=== PATIENT | male | born 1995 | race African-American/Black ===

== ENCOUNTER 2020-02-05 08:28 | Observation (INO) | payer OTHER, SELFPAY ==
--- NOTE | ~2020-02-05 | XR_ITS ---
EXAMINATION: XR finger 3rd RT min 2V EXAM DATE: 02/05/2020 09:32 INDICATION: Infection. Right 3rd finger pain, swelling. TECHNIQUE: Right 3rd finger frontal, lateral and oblique projections obtained and reviewed. There is no prior study for comparison. FINDINGS: There are no acute right 3rd finger fractures or dislocations identified. There is no subc utaneous gas. There is soft tissue swelling over the digit, proximal interphalangeal. There are no radiopaque foreign bodies. There are no bony erosions identified. IMPRESSION: 1. Right 3rd finger exam without acute osseous findings. 2. Soft tissue swelling. Reviewed, dictated and finalized at location B.
[2020-02-05 08:55] VITALS: BP 120/76; PULSE 89; RESP 17; TEMP 36.8; O2SAT 99
[2020-02-05] MEDS: IBUPROFEN IV 800 MG/200 ML 800 MG/200 ML BAG 400 MG IVPB (09:41)
[2020-02-05 09:50] LABS: Basophils Absolute Auto 0.1 K/mm3 (0.0-0.1); Basophils Percent Auto 0.8 % (0.2-1.2); Eosinophils Absolute Auto 0.1 K/mm3 (0-0.3); Eosinophils Percent Auto 1.7 % (0-4.4); Hematocrit 40.3 % (42.0-52.0); Hemoglobin 13.6 g/dL (14.0-18.0); Immature Granulocyte Absolute 0.02 K/mm3 (0.00-0.031); Immature Granulocyte Percent A 0.3 % (0-0.5); Lymphocytes Absolute Auto 2.05 K/mm3 (0.9-3.2); Mean Corpuscular HGB Conc 33.7 g/dl (32-36); Mean Corpuscular Hemoglobin 29.8 pg (26-34); Mean Corpuscular Volume 88.4 fl (80-100); Mean Platelet Volume 10.6 fl (7.4-10.4); Monocytes Absolute Auto 0.7 K/mm3 (0.1-0.6); Monocytes Percent Auto 9.4 % (2.6-8.5); Neutrophils Absolute Auto 4.6 K/mm3 (1.3-6.7); Neutrophils Percent Auto 60.8 % (45.5-73.1); Platelet Count Result 223 k/mm3 (150-375); Red Blood Count 4.56 M/mm3 (4.6-6.20); Red Cell Distribution Width 13.7 % (11.5-14.5); White Blood Count 7.6 K/mm3 (4.5-10.0)
[2020-02-05 10:06] LABS: Anion Gap 5 mmol/L (8-16); Blood Urea Nitrogen 10 mg/dL (9-20); Calcium 8.8 mg/dL (8.4-10.2); Carbon Dioxide 27 mmol/L (22-30); Chloride 107 mmol/L (98-107); Estimated CRCL calculation 110 ml/min; Estimated Glomerular Filt Rate > 60; Glucose 87 mg/dL (75-110); Sodium 139 mmol/L (137-145)
--- NOTE | 2020-02-05 10:13 | PC.NURSE ---
RANDALL CRUZ AT BEDSIDE FOR I&D OF FINGER
[2020-02-05 10:42] VITALS: BP 133/68; PULSE 72; RESP 18; O2SAT 100
--- NOTE | 2020-02-05 10:47 | WC.ED.TRAUMA ---
HPI - Trauma General Chief Complaint: Extremity Injury, Upper <Rene Garcia PA-C - Last Filed: 02/05/20 11:16> Stated Complaint: HAND INFECTION <NITZA Alexander Last Filed: 02/05/20 11:16> Time Seen by Provider: 02/05/20 09:04 <Rene Garcia PA-C - Last Filed: 02/05/20 11:16> Source: patient <NITZA Alexander Last Filed: 02/05/20 11:16> Mode of arrival: ambulatory <NITZA Alexander Last Filed: 02/05/20 11:16> Limitations: no limitations <NITZA Alexander Last Filed: 02/05/20 11:16> History of Present Illness HPI narrative: Patient is a 25-year-old male who presents with 3 days duration of right middle finger swelling patient notes aching pain to the right middle digit worse with activity and movement patient denies injury or trauma notes he has had a similar infection in opposite finger in the recent past patient denies fever chills nausea vomiting otherwise is resting comfortably in the room upon arrival in no distress <Rene Garcia PA-C - Last Filed: 02/05/20 11:16> Related Data Allergies/Adverse Reactions: Allergies Allergy/AdvReac Type Severity Reaction Status Date / Time No Known Allergies Allergy Verified 02/05/20 09:00 <Rene Garcia PA-C - Last Filed: 02/05/20 11:16> Review of Systems Review of Systems: All systems reviewed & are unremarkable except as noted in HPI and below <Rene Garcia PA-C - Last Filed: 02/05/20 11:16> PMFSH Social History Social History: Social History (Updated 02/05/20 @ 10:48 by Rene Garcia PA-C) Smoking status: Current every day smoker Gender identity (if verbalized by the patient): Male <NITZA Alexander Last Filed: 02/05/20 11:16> Exam Narrative: Exam Narrative: GENERAL: Well-appearing, well-nourished, and in no acute distress. HEAD: Normocephalic, atraumatic. EYES: PERRLA and EOMI. ENT: Nares clear, no rhinorrhea or epistaxis. Mucous membranes moist. CHEST: Clear to auscultation. No respiratory distress. No wheezes rales or rhonchi HEART: Regular rate and rhythm. No murmur heard. Normal peripheral pulses. EXTREMITIES: Normal range of motion. No edema. SKIN: Warm, dry, no rash. Swelling and tenderness along the right third digit with erythema with the majority of tenderness around the PIP joint worse on the palmar aspect. No lymphangitic streaking NEURO: No focal deficits. Alert and oriented x3. Neurovascularly intact PSYCH: Normal mood and affect. <Rene Garcia PA-C - Last Filed: 02/05/20 11:16> Course Course Emergency Course: Patient in the room in no distress aware of case findings treatment plan diagnosis agreeing to stay in hospital given IV antibiotics had I&D no purulence will have plastic surgery consult <Rene Garcia PA-C - Last Filed: 02/05/20 11:16> CALL CIRCUIT WORKER/PA Physician Supervision Patient presented for finger pain and edema despite being on antibiotics. Exam of fingers notable for edema, wound on left third middle digit, edema which is circumferential with difficulty with flexion to right third middle digit. Patient is right-hand dominant. Otherwise neurovascularly intact. Will admit patient for what is likely I&D, cellulitis and patient was given antibiotics in the ER. For this patient encounter, I reviewed the CALL CIRCUIT WORKER or PA documentation, treatment plan, and medical decision making; and I had [id number] time with this patient. <Adrienne Starkey MD - Last Filed: 02/05/20 12:00> Consultations Consultation #1: Suresh case with hospitalist and plastic surgeon who will manage the patient in hospital antibiotic treatment initially followed by reevaluation <Rene Garcia PA-C - Last Filed: 02/05/20 11:16> Date: 02/05/20 <Rene Garcia PA-C - Last Filed: 02/05/20 11:16> Time: 10:49 <NITZA Alexander Last Filed: 02/05/20 11:16> Vital Signs Vital signs: Vital Signs Temperature 36
[2020-02-05 12:09] VITALS: BP 133/68; PULSE 72; RESP 18; O2SAT 100
[2020-02-05 12:15] VITALS: BP 104/58; PULSE 55; RESP 16; TEMP 36.3; O2SAT 99
[2020-02-05 12:24] VITALS: BMI 24.1
--- NOTE | 2020-02-05 12:24 | ADMGEN ---
This patient, Gucci Erwin, was admitted to 3 [facility] Room 310-01 @ 1215. Patient/family oriented to hospital policies and general routines including ID bracelet, bed and alarms, visiting hours, pain management, procedures, bathroom and other care routines, personal items, smoking policy, room service/diet, and visiting hours. Valuables list has been completed. Information on how to activate the Rapid Response Team has been discussed. Patient/Family are encouraged to report perceived risks to care and to ask questions if they do not understand what they are told or what they should do.
[2020-02-05] MEDS: LACTATED RINGERS 1,000 ML 125 ML IV CONT (12:41)
--- NOTE | 2020-02-05 13:05 | PM.IMHP ---
H&P: HPI History of Present Illness Date/Time: 02/05/20 13:05 Chief complaint: Cellulitis finger Narrative: Gucci Erwin is a 25 year old male who comes in today for evaluation of his right middle finger. He states that couple of days ago he began to have some erythema. Some edema. As such she came to the emergency room for evaluation. In the emergency room he was evaluated. I and D was attempted with no purulence identified. The patient states he has had no specific injuries or trauma at this site. No clear etiology of why would have this edema. Of note about 4-5 weeks: His left middle finger had a similar event. This started out as erythema and they provided topical treatment for burn and subsequent antibiotics. He said he had significant edema of the left middle finger perhaps 2 times the size of the right middle finger is currently. Nothing was working and dilated the antibiotics at which time it began to shrink up and the distal tip open did had purulence drainage. He had attempted to drain the left middle finger before that drainage without success. This is now healing and he is doing well on the hand. He does have numbness of the left middle finger tip. On his right hand he states he does not have numbness, he is able to feel the tip. He states he wonders if this has relation to incarceration however he has been out for almost 1 year. Review of Systems Review of Systems: All systems reviewed & are unremarkable except as noted in HPI and below Musculoskeletal: Musculoskeletal: Reports as per HPI [facility] Family History Family History (Updated 02/05/20 @ 12:28 by Eboni Martins RN) Other Unknown family medical history Social History Social History (Updated 02/05/20 @ 10:48 by Rene Garcia PA-C) Smoking packs per day: 1 Smoking cigarettes per day: 20.0 Years smoked: 1 Smoking pack-years: 1.00 Smoking status: Current every day smoker Tobacco type: cigarettes Additional smoking assessment comments: black and milds, marijuana Alcohol intake: never Substance use: current Substance use type: marijuana Last use: 02/05/20 Gender identity (if verbalized by the patient): Male Spiritual care concerns: No Meds Home Medications and Allergies Home Medications Medication Instructions Recorded Confirmed Type No Home Medications 02/05/20 02/05/20 History Allergies Allergy/AdvReac Type Severity Reaction Status Date / Time No Known Allergies Allergy Verified 02/05/20 09:00 Vital Signs Vital Signs - 24 hr 02/05/20 08:55 02/05/20 10:42 02/05/20 12:09 Temperature 36.8 C Pulse Rate 89 72 72 Respiratory Rate 17 18 18 Blood Pressure 120/76 133/68 133/68 Pulse Oximetry 99 100 100 Exam Const: General: comfortable, no acute distress, alert and awake; No acute distress Orientation/consciousness: oriented to person HENMT: Head: normal to inspection Ears: external ears normal General nose exam: Normal external nose present Face and sinus: normal facial exam Eyes: General: appearance normal, both eyes and all related structures Periorbital: periorbital findings normal Eyelids: eyelids normal Conjunctivae: conjunctivae normal Neck: Neck: normal visual inspection Chest: Chest palpation & inspection: normal inspection of the chest Resp: Effort & Inspection: normal respiratory effort and able to speak in complete sentences GI: Inspection: normal to inspection Neuro: General: oriented to person Extrem: Other: Right hand has normal sensation on the right middle finger tip. Small open wound from the previous I and D site. No purulence identified. He does slightly hold this in flexion with little tenderness just over the digit volar aspect but this does not extend all the with the flexor tendon sheath. No evidence of fusiform edema and I am able to fully extend the digit with minimal discomfort. Left middle finger has a longitudinal open wound
[2020-02-05 13:53] VITALS: BP 97/54; PULSE 57; RESP 16; TEMP 36.5; O2SAT 98
--- NOTE | 2020-02-05 13:55 | PM.IMHP ---
H&P: HPI History of Present Illness Date/Time: 02/05/20 13:30 Chief complaint: Cellulitis finger PMFSH Past Medical History Medical History Tobacco use Surgical History Surgical History (Updated 02/05/20 @ 13:57 by Jaquelin Ramsay PA-C) No history of previous surgery Family History Family History (Updated 02/05/20 @ 12:28 by Eboni Martins RN) Other Unknown family medical history Social History Social History (Updated 02/05/20 @ 13:57 by Jaquelin Ramsay PA-C) Social History: Surrogate decision maker: Code status: Smoking packs per day: 1 Smoking cigarettes per day: 20.0 Years smoked: 1 Smoking pack-years: 1.00 Smoking status: Current every day smoker Tobacco type: cigarettes Additional smoking assessment comments: black and keanu, marijuana Alcohol intake: never Substance use: current Substance use type: marijuana Last use: 02/05/20 Gender identity (if verbalized by the patient): Male Spiritual care concerns: No Meds Home Medications and Allergies Home Medications Medication Instructions Recorded Confirmed Type No Home Medications 02/05/20 02/05/20 History cephalexin 500 mg PO Q6H 7 Days #28 cap NS 02/05/20 Rx ibuprofen 800 mg PO Q6H PRN #12 tablet NS 02/05/20 Rx MDD 3200 Allergies Allergy/AdvReac Type Severity Reaction Status Date / Time No Known Allergies Allergy Verified 02/05/20 09:00
--- NOTE | 2020-02-05 17:55 | PM.SD ---
Same Day Admit/Disch: HPI History of Present Illness Chief complaint: Right middle finger pain and swelling. Narrative: Gucci Erwin is a healthy 25-year-old male who suffers from hyperhidrosis who presented to the emergency department earlier today via private vehicle for evaluation of right middle finger swelling and pain. 3 days ago he noticed swelling and an aching discomfort in his right middle finger with progressive edema and erythema. He has a difficult time bending the finger due to the swelling and throbbing pain but seems okay with extension. He has not noticed an open wound and does not recall injuring the finger or the presence of any bites, splinters, etc. Interestingly, the same thing happened on his left middle finger about 3 weeks ago and due to such significant swelling he punctured it with a thumb tack although it did not drain. Shortly thereafter he developed increasing redness and had yellow purulent drainage from the volar aspect near the PIP for which he was prescribed Keflex will improvement. However he still has a defect in the area where he apparently had torn the skin off and sort of debrided it himself. 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 Also, he wears latex gloves while working with chemicals and due to his pretty severe hyperhidrosis (his hands are frequently drenched in sweat) the gloves are always full of sweat and fluid. He denies fever, chills, nausea, vomiting, feelings of malaise, cold digitis, and numbness (although he reports a slight decrease in sensation at the tip of the affected finger). No history of MRSA. His last tetanus shot was about a year ago. [facility] Past Medical History Medical History Hyperhidrosis Tobacco use Surgical History Surgical History (Updated 02/05/20 @ 13:57 by Jaquelin Ramsay PA-C) No history of previous surgery Family History Family History (Updated 02/05/20 @ 20:35 by Jaquelin Ramsay PA-C) Other No significant family history Social History Social History (Updated 02/14/20 @ 23:36 by Jaquelin Ramsay PA-C) Social History: Surrogate decision maker: Ruth Kline, mother. Code status: Full code. Smoking packs per day: 1 Smoking cigarettes per day: 20.0 Years smoked: 1 Smoking pack-years: 1.00 Smoking status: Current every day smoker Tobacco type: cigarettes Additional smoking assessment comments: black and milds, marijuana Alcohol intake: never Substance use: current Substance use type: marijuana Last use: 02/05/20 Gender identity (if verbalized by the patient): Male Spiritual care concerns: No Same Day Admit/Disch: Med Pre-admit Medications Home Medications Medication Instructions Recorded Confirmed Type No Home Medications 02/05/20 02/05/20 History cephalexin 500 mg PO Q6H 7 Days #28 cap NS 02/05/20 Rx ibuprofen 800 mg PO Q6H PRN #12 tablet NS 02/05/20 Rx MDD 3200 Exam Narrative: Exam Narrative: General: Well-developed male sitting up in bed in no distress. He is eager for discharge. He is nontoxic in appearance. Weight 74.2 kg. BMI: 24.4. HEENT: Normocephalic, atraumatic. PERRL, EOMI. Sclerae anicteric. Oral mucosa moist. Oropharynx clear. Neck: Supple. Respiratory: Lungs are clear to auscultation bilaterally. Cardiovascular: Regular rate and rhythm with S1-S2. Gastrointestinal: Abdomen is soft, nontender, and nondistended with positive bowel sounds. No organomegaly. Skin: Warm and dry. Twice throughout the interview he broke out in a diffuse sweat on his hands, and he states he has suffered from hyperhidrosis as long as he can remember. Extremities: No cyanosis, clubbing, or edema (aside from swelling of the right 3rd finger). Radial and pedal pulses intact. Musculoskeletal: Right 3rd finger is edematous around the PIP joint with surrounding erythema and warmth. Due to the swell
== END 2020-02-05 18:15 | disposition home or self-care (01) ==
LOC: ANHED 10:51 → ANH3MEDSUR 11:29
PROVIDERS: Emergency Medicine Emergency Medical Services; Admitting Provider Family Medicine; Emergency Provider Emergency Medicine; Visit Provider Family Medicine
DX: L03.011 Cellulitis of right finger (principal); R61 Generalized hyperhidrosis; F17.210 Nicotine dependence, cigarettes, uncomplicated; F12.90 Cannabis use, unspecified, uncomplicated
CPT/HCPCS: 26010; 36415; 73140; 80048; 85025; 86140; 87070; 87205; 96361; 96365; 96367; 96375; 99285; G0378; G0379; J0131; J0690; J1741; J3370; J7120